=== PATIENT | female | born 1955 | race Caucasian/White ===

== ENCOUNTER 2025-01-23 19:43 | Emergency (ER) | payer MEDICAID, MEDICARE, OTHER ==
[~2025-01-23] VITALS: Ht 175.3 cm; Wt 86.5 kg
--- NOTE | 2025-01-23 20:05 | ELECTROCARDIOGRAPH REPORT ---
[facility] Test Date: 2025-01-23 Test Time: 20:01:25 Pat Name: SELENA NAIK Department: EMERGENCY ROOM Room: Gender: F [employer] Consultant: : [id number] Requested By: LISE HILLS Order Number: [id number] Reading MD: Dr. Mario Abdi Measurements Intervals [place] Rate: 81 P: 43 MS: 163 QRS: 57 QRSD: 127 T: 131 QT: 380 QTc: 441 Interpretive Statements Sinus rhythm Ventricular premature complex Nonspecific intraventricular conduction delay Inferior infarct, old Lateral leads are also involved Electronically Signed On 02-02-2025 18:43:[address] Mario Abdi Please click the below link to view image of tracing.
[2025-01-23 20:31] LABS: BASOPHILS # (AUTO) 0.1 X10'3 (0-0.2); EOSINOPHILS # (AUTO) 0.3 X10'3 (0-0.9); EOSINOPHILS % (AUTO) 2.4 % (0-6); HEMATOCRIT 40.7 % (35.0-45.0); HEMOGLOBIN 13.5 g/dl (12.0-16.0); LYMPHOCYTES # (AUTO) 3.1 X10'3 (1.1-4.8); LYMPHOCYTES % (AUTO) 29.5 % (21-51); MEAN CORPUSCULAR HEMOGLOBIN 30.8 PG (27.0-31.0); MEAN CORPUSCULAR HGB CONC 33.1 g/dL (33.0-36.5); MEAN CORPUSCULAR VOLUME 93.2 FL (78-98); MEAN PLATELET VOLUME 8.1 FL (7.4-10.4); MONOCYTES # (AUTO) 0.7 X10'3 (0-0.9); MONOCYTES % (AUTO) 6.8 % (2-12); NEUTROPHILS # (AUTO) 6.4 X10'3 (1.8-7.7); NEUTROPHILS % (AUTO) 60.3 % (42-75); PLATELET COUNT 264 X10'3 (140-440); RED BLOOD COUNT 4.37 X10'6 (4.20-5.60); RED CELL DISTRIBUTION WIDTH 14.1 % (11.5-14.5); WHITE BLOOD COUNT 10.6 X10'3 (4.5-11.0)
--- NOTE | 2025-01-23 20:38 | RADIOLOGY REPORT ---
CHEST RADIOGRAPH Indication: CP Technique: Single frontal view of the chest was obtained Comparison: None FINDINGS: Lines and Tubes: None Lungs: No focal consolidation. Pleura: No effusion. No pneumothorax. Cardiomediastinal contours: Unremarkable Bones: No acute osseous abnormality. IMPRESSION: No acute cardiopulmonary disease.
--- NOTE | 2025-01-23 20:43 | Physician Documentation ---
History of Present Illness ~ Chief Complaint: Syncope Stated Complaint: HEAT RELATED Time Seen by MD: 20:12 Primary Medical Doctor: NONE HPI Patient presents to the emergency room with syncopal episode. [place] and states she was not used to the heat and when she was unpacking she sat down and while sitting down her relatives describe as if the lights went out. No head strike. Patient is sat there for a good 1-2 minutes completely out of it and then came back to herself in about a minute. EMS on the scene found patient to be hypotensive. She denies any abdominal pain cough cold congestion fevers or dysuria. Patient does not have a doctor and states she does not have a past medical history. She has had prior episode similar to where she gets dizzy like she would pass out when standing etc. but nothing like this. She denies chest pain or palpitations. Medication Reconciliation Allergies: Coded Allergies: codeine (Unverified Allergy, Intermediate, 01/23/25) Review of Systems ROS All review of systems negative except as per HPI Physical Exam Vital Signs: Temperature: 98.0, Source: Oral, Heart Rate: 82, Respiratory Rate: 16, BP: 83/53, Pulse Oximetry: 100, Weight: 86.500 Oxygen Flow Rate: 0 Physical Exam General: Patient is awake, alert, oriented x4 in no acute distress Head: Normocephalic and atraumatic. Eyes: Conjunctival normal. EOMI. PERRL. ENT: Mucous membranes moist. Neck: Supple, trachea is midline. Chest: Clear to auscultation bilaterally without rales, rhonchi, or wheezes. There is no accessory muscle use or retractions. Cardiac: RRR without murmurs, gallops, or rubs. Abd: Soft, nondistended, nontender, with normoactive bowel sounds. No guarding, rebound, or rigidity. Progress Results/Orders Results/Orders Orders - MOISES AGUERO MD Chest,Single View (01/23/25 20:10) Monitor (01/23/25 19:56) Saline Lock (01/23/25 19:56) Oxygen (01/23/25 19:56) Cult Urine + [place] [address] (01/23/25 22:21) Completed Orders - MOISES AGUERO MD Chest,Single View (01/23/25 20:10) Cbc/Diff (01/23/25 19:56) BMP (01/23/25 19:56) PBNP (01/23/25 19:56) Electrocardiogram (01/23/25 19:56) Hs Troponin I W Calculations (01/23/25 19:56) Hs Troponin I W Calculations (01/23/25 21:56) Normal Saline 1000ml (Sodium Chloride 10 (01/23/25 20:45) Procalcitonin (01/23/25 20:48) Normal Saline 1000ml (Sodium Chloride 10 (01/23/25 21:50) Ua W/Microscopic, Cult If Ind (01/23/25 21:51) Medications Received in ER Medications (Trade) Dose Ordered Sig/Jett Route PRN Reason Start Time Stop Time Status Last Admin Dose Admin Sodium Chloride 1,000 ml @ 1,000 mls/hr ONCE ONCE IV 01/23/25 20:45 01/23/25 21:44 DC 01/23/25 21:53 1,000 MLS/HR Sodium Chloride 1,000 ml @ 1,000 mls/hr ONCE ONCE IV 01/23/25 21:50 01/23/25 22:49 DC 01/23/25 21:58 1,000 MLS/HR Vital Signs 01/23/25 01/23/25 01/23/25 01/23/25 19:45 20:17 21:48 21:49 Temp 98.0 Pulse 82 82 81 Resp 16 16 18 18 B/P (MAP) 77/47 83/53 (63) 106/80 (89) Pulse Ox 96 100 100 O2 Flow Rate 0 Laboratory Tests Test 01/23/25 20:10 01/23/25 21:51 01/23/25 22:06 White Blood Count 10.6 Red Blood Count 4.37 Hemoglobin 13.5 Hematocrit 40.7 Mean Corpuscular Volume 93.2 Mean Corpuscular Hemoglobin 30.8 Mean Corpuscular Hemoglobin Concent 33.1 Red Cell Distribution Width 14.1 Platelet Count 264 Mean Platelet Volume 8.1 Neutrophils (%) (Auto) 60.3 Lymphocytes (%) (Auto) 29.5 Monocytes (%) (Auto) 6.8 Eosinophils (%) (Auto) 2.4 Basophils (%) (Auto) 1.0 Neutrophils # (Auto) 6.4 Lymphocytes # (Auto) 3.1 Monocytes # (Auto) 0.7 Eosinophils # (Auto) 0.3 Basophils # (Auto) 0.1 CBC Comment Sodium Level 140 Potassium Level 3.4 L Chloride Level 106 Carbon Dioxide Level 27.3 Anion Gap 7 L Blood Urea Nitrogen 7 Creatinine 1.17 H Estimated GFR/1.73 m2 46 BUN/Creatinine Ratio 6.0 L Glucose Level 141 H Calcium Level 9.1 Troponin I High Sensitivity 19 18 Pro-B-Type Natriuretic Peptide 1046 H Albumin 3.5 Procalcitonin < 0.05 Chemistry Comments Urine Specimen Description Cln catch midstream Urine Color Yellow Urine Clarity Clear Urine pH 7.0 Urine Specific [place] <=1.005 Urine Protein Negative Urine Glucose (UA) Negative Urine Ketones Negative Urine Occult Blood Trace-intact Urine Nitrite Negative Urine Bilirubin Negative Urine Urobilinogen 0.2 Urine Leukocyte Esterase Small H Urine RBC 3-10 Urine WBC 5-10 H Urine Squamous Epithelial Cells Few Urine Bacteria 2+ Urine Mucus Few Urine Culture Indicated Indicated Volume Urine Centrifuged 10 ml Urine Comment Troponin I High Sens Percent Delta 5 Troponin I Hi Sens Absolute Change -1 EKG/XRAY/CT/US/VASC/MRI EKG : Additional Comment EKG interpreted by myself shows time of 2000, rate 81, sinus rhythm, normal axis, nonspecific intraventricular conduction delay, no ST changes Chest X-Ray : Additional Comments Exam: CHEST,SINGLE VIEW CHEST RADIOGRAPH Indication: CP Technique: Single frontal view of the chest was obtained Comparison: None FINDINGS: Lines and Tubes: None Lungs: No focal consolidation. Pleura: No effusion. No pneumothorax. Cardiomediastinal contours: Unremarkable Bones: No acute osseous abnormality. IMPRESSION: No acute cardiopulmonary disease. Medical Decision Making Findings Patient presented to the emergency room with syncopal episode as per HPI. Differentials include but are not limited to vasovagal, seizure, infectious process, dehydration therefore emergent labs and imaging indicated. No prior labs to compare to however labs are reassuring for no major pathologic derangements. Mild low potassium I do not feel this caused her symptoms. Given her history and response to IV fluids she is likely suffering from dehydration leading to syncopal episode. Cardiologic investigation is negative. Patient denies any chest pain and he had not feel she is suffering from cardiac syncope. She has passed the road test and feels well enough to go home. The need to double her hydration efforts discussed. Departure Disposition: 01 HOME / SELF CARE / HOMELESS Impression: Primary Impression: Dehydration Additional Impressions: Syncope Urinary tract infection Condition: Improved Discharge Instructions: Dehydration, Elderly, Xrrw[id number], Syncope, Adult, Urinary Tract Infection, Adult Additional Instructions: Double your efforts for hydration. Avoid the heat Referrals: NO PRIMARY CARE PROVIDER (PCP) Prescriptions Cephalexin*Monohydrate* (Keflex*) 500 Mg Capsule 1 CAP PO Q12H for 10 Days, #20 CAP Prov: MOISES AGUERO MD 01/23/25 Education Educated: Patient Educated regarding: diagnosis, treatment, need for follow up Signature Scribe Signature: No scribe Attestation: The note accurately reflects work and decisions made by me.Moises Aguero MD 01/23/25 23:14 MOISES AGUERO MD Jan 23, 2025 20:43
[2025-01-23 20:52] LABS: ALBUMIN 3.5 G/DL (3.4-5.0); ANION GAP 7 (8-16); BLOOD UREA NITROGEN 7 MG/DL (7-18); CALCIUM 9.1 MG/DL (8.5-10.1); CHLORIDE 106 MMOL/L (99-107); CREATININE 1.17 MG/DL (0.40-0.90); GLUCOSE 141 MG/DL (70-104); POTASSIUM 3.4 MMOL/L (3.5-5.1); PRO BRAIN NATRIURETIC PEPTIDE 1046 PG/ML (0-125); SODIUM 140 MMOL/L (135-145); TOTAL CARBON DIOXIDE 27.3 MMOL/L (24-32); eCRCL 47 ML/MIN; eGFR 46 ML/MIN
[2025-01-23] MEDS: normal saline 1000ml 1,000 ML IV ONE ×2 (21:53→21:58)
[2025-01-23 22:15] LABS: BILIRUBIN,URINE NEGATIVE (Neg); CLARITY,URINE CLEAR (Clear); COLOR,URINE YELLOW (Yellow); GLUCOSE, URINE NEGATIVE (Neg); KETONES,URINE NEGATIVE (Neg); LEUKOCYTE ESTERASE ,URINE SMALL (Neg); OCCULT BLOOD,URINE TRACE-INTACT (Neg); PROTEIN,URINE NEGATIVE (Neg); UROBILINOGEN,URINE 0.2 E.U/dL (0.2-1.0)
[2025-01-23 22:17] LABS: UA COLLECTION TYPE CLN CATCH MIDSTREAM
[2025-01-23 22:18] LABS: NITRITES, URINE NEGATIVE (Neg)
[2025-01-23 22:20] LABS: BACTERIA,URINE 2+ /HPF (Neg); SQUAMOUS EPITHELIAL CELL,UR FEW /LPF (FEW)
[2025-01-23 22:21] LABS: MUCUS STRANDS FEW /LPF (Neg)
[2025-01-23] MEDS ORDERED: CEPH-585 PO (23:13)
[2025-01-23 23:54] VITALS: BP 120/87; PULSE 78; RESP 14; TEMP 98; O2SAT 100
== END 2025-01-23 23:57 | disposition home or self-care (01) ==
LOC: ER 19:44
DX: R55 Syncope and collapse (principal); E86.0 Dehydration; R06.02 Shortness of breath; R07.9 Chest pain, unspecified; N39.0 Urinary tract infection, site not specified; Z88.5 Allergy status to narcotic agent
CPT/HCPCS: 36415; 71045; 80048; 81001; 83880; 84145; 84484; 85025; 87077; 87088; 87186; 93005; 96360; 99285; J7030